=== PATIENT | male | born 1955 | race Caucasian/White ===

== ENCOUNTER 2018-11-14 04:06 | Inpatient (IN) ==
[2018-11-14] MEDS ORDERED: METHYLPREDNISOLONE SOD SUCC/PF 125 MG/2 ML VIAL IV ONE (04:17)
[2018-11-14] MEDS ORDERED: ALBUTEROL SULFATE 2.5 MG/0.5 ML VIAL.NEB IH ONE (04:17)
--- NOTE | 2018-11-14 04:24 | ERNOTE ---
Dyspnea - Date Date of Service: 11/14/18 - General Presenting Symptoms: shortness of breath Time Seen by Provider: 11/14/18 04:11 Source: patient - Immun/Allergies/Home Medications Immunizations: IMMUNIZATION HX Immunizations Up to Date Yes History of Influenza Vaccine No Hx Pneumococcal Vaccination No Allergies/Adverse Reactions: Allergies Iodinated Contrast- Oral and IV Dye [Iodinated Contrast Media - IV Dye] Allergy (Severe, Verified 11/14/18 04:19) Swelling of Face Sulfa (Sulfonamide Antibiotics) Allergy (Verified 11/14/18 04:19) iv dye Allergy (Severe, Uncoded 11/14/18 04:19) Swelling of Face Home Medications: HOME MEDICATIONS Acetaminophen [Tylenol] 650 mg PO QID PRN #1 tablet 09/03/14 [Last Taken Unknown] Carvedilol [Coreg] 3.125 mg PO BID #60 tablet 09/03/14 [Last Taken Unknown] Enalapril Maleate [Vasotec] 10 mg PO DAILY #30 tablet 09/03/14 [Last Taken Unknown] Furosemide [Lasix] 40 mg PO DAILY #30 tablet 09/03/14 [Last Taken Unknown] Albuterol Sulfate [Albuterol Sulfate 2.5 MG/0.5ML] 1 vial INHALATION Q4H #30 vial 09/24/18 [Last Taken Unknown] - History of Present Illness Narrative: This is a 62-year-old gentleman comes to the ER around 4:00 in the morning. He reports having profound dyspnea. Patient has a history of COPD. The patient reports he has been having increasing dyspnea for the last couple of days. Increased sputum production. Yellow to hilliard-colored mucus. No chest pain but a bit of tightness because of his breathing. He says it got really bad this morning. No swelling in his legs. No fever. He complains of a little bit of abdominal tightness but again relates that to the deep breathing. No vomiting or diarrhea. No urinary symptoms. No other complaints Review of Systems - Review of Systems Constitutional: Present: no symptoms reported EYE: Present: no symptoms reported ENT: Present: no symptoms reported Respiratory: Present: See HPI Cardiology: Present: no symptoms reported Gastrointestinal/Abdominal: Present: no symptoms reported Genitourinary: Present: no symptoms reported Musculoskeletal: Present: no symptoms reported Skin: Present: no symptoms reported Neurological: Present: no symptoms reported Endocrine: Present: no symptoms reported Hematologic/Lymphatic: Present: no symptoms reported Psych: Present: no symptoms reported All Other Systems: All systems neg except as marked Medical History (Updated 11/14/18 @ 04:17 by Lilly Ruiz RN) CHF (congestive heart failure) COPD (chronic obstructive pulmonary disease) HTN (hypertension) Pneumonia Social History: (Last Updated 11/14/18 @ 04:19 by Lilly Ruiz RN) Tobacco: Smoking Status: Former smoker Alcohol: alcohol intake: current Alcohol type: beer Physical Exam - Physical Exam General Appearance: Present: wd/wn, alert, anxious, other - Moderate to severe respiratory distress. Profoundly diaphoretic Head Exam: Present: normal inspection, no evidence of injury Eye Exam: Normal inspection: bilateral, PERRL: bilateral, EOMI: bilateral Ears, Nose, Throat: Present: normal ENT inspection Neck: Present: normal inspection Respiratory: Present: other - Virtually no air entry throughout. Moderate to severe respiratory distress. No breath sounds. Cardiovascular/Chest: Present: other - Very tachycardic around 150. Gastrointestinal/Abdominal: Present: normal bowel sounds, nontender, nondistended, soft Back Exam: Present: normal inspection, no CVA tenderness, no vertebral tenderness Extremity Exam: Present: normal inspection, non-tender, normal range of motion, no edema Neurological Exam: Present: alert, oriented, normal mood/affect, no motor/sensory deficits, other - Appears appropriately anxious Skin Exam: Present: normal color, warm/dry Lymphatic Exam: Present: no adenopathy Progress - Results and Orders Patient's Lab Results:: I have reviewed the patient's lab results. - Vital Signs Patient's Vital Signs:: I have reviewed the patient's vital signs. - EKG EKG #1 EKG read: Interp. by me EKG Comments: Difficult to truly assess whether this is sinus or not. The ventricular rate is 149. It does look like there are P waves present. Nonspecific T wave changes. Due to the rate and morphology difficult to make of the other assessments other than no ST elevation. Q waves present in V1 and V2. - X-Ray X-Ray #1 Interpretation: Interp. by me X-ray Comments: Chest x-ray shows hyperexpansion stigmata COPD? Right middle lobe infiltrate Plan - Plan Plan: Patient was placed on BiPAP initially. He had improvement for about 15 minutes but then got worse for 15 minutes and much better. Initial gas showed a pH of 7.2 with PCO2 in the 40s and PaO2 of 105 that was on 40% FiO2. He was kept on BiPAP for about an hour and heart rate is now down in the 90s he is breathing much more easily. He would like to try a trial off of the BiPAP. Initially when taken off of BiPAP his saturations went down to 85%. Placed on 3 L nasal cannula. I am not convinced that he has a pneumonia I think this is more likely COPD. I do not believe that he has congestive heart failure either. I am not going to aggressively diurese him. He is gotten steroids and antibiotics and breathing medicines. I will write for those over the next 24 hours. I spoke with Dr. Rousseau who is graciously agreed to admit the patient Departure Clinical Impression: COPD exacerbation - Departure Disposition: Still a patient Condition: Stable
[2018-11-14 04:44] LABS: Hematocrit 53.1 % (42.0-52.0); Hemoglobin 17.1 gm/dL (13.5-18.0); Mean Cell Volume 93.8 fl (78-100); Mean Corpuscular Hemoglobin 30.2 pg (27-31); Mean Corpuscular Hgb Conc 32.2 g/dl (32-36); Mean Platelet Volume 10.5 fl (8-11.3); Neutrophil # 7.9 K/mm3 (1.3-6.0); Neutrophil % 59.4 % (42-75.0); Platelet Count 220 K/mm3 (150-450); Red Blood Count 5.66 M/mm3 (4.7-6.0); Red Cell Distribution Width 13.7 % (11.5-14.0); White Blood Count 13.3 K/mm3 (4.0-10.5)
[2018-11-14] MEDS ORDERED: LEVOFLOXACIN IN DEXTROSE 5 % 750 MG/150 ML BAG IV ONE ×2 (04:46→06:04)
[2018-11-14] MEDS ORDERED: MORPHINE SULFATE 4 MG/ML SYRG IV ONE (04:47)
[2018-11-14 05:04] LABS: Anion Gap 16.5 mmol/L (6.8-13.8); BUN/Creatinine Ratio 12.6 (9.0-21.6); Calcium * 8.6 mg/dL (7.9-10.9); Carbon Dioxide 24.6 mmol/L (24-32.6); Estimated Creat Clear 43.5; Potassium 4.1 mmol/L (3.4-4.6); Troponin I 0.108 ng/mL (0.00-0.10)
[2018-11-14] MEDS ORDERED: ALBUTEROL SULFATE 2.5 MG/0.5 ML VIAL.NEB IH SCH (06:15)
[2018-11-14] MEDS: METHYLPREDNISOLONE SOD SUCC/PF 125 MG/2 ML VIAL IV SCH ×3 (06:53→19:13)
[2018-11-14] MEDS ORDERED: NORMAL SALINE 1,000 ML IV PRN (08:44)
--- NOTE | 2018-11-14 08:46 | HP ---
Chief Complaint - Chief Complaint Date of Service: 11/14/18 Time of Service: 08:28 Chief Complaint: dyspnea History of Present Illness: Patient with past medical history of COPD and hypertension presented to the ER after having a couple of days of shortness of breath. This has happened to him before and he is requiring the mask, but never required ventilation. He admits to not taking medicines at home, and does not see a doctor regularly. The BiPAP has helped. It was removed for a short time, but he had increased work of breathing. Denies other symptoms. Medical History (Updated 11/14/18 @ 06:07 by Venancio Argueta MD) CHF (congestive heart failure) COPD (chronic obstructive pulmonary disease) HTN (hypertension) Pneumonia Surgical History: Surgical History (Updated 11/14/18 @ 06:59 by Shaye Kirkland RN) Abdominal aneurysm removal of Family History: Family History (Updated 11/14/18 @ 07:00 by Shaye Kirkland RN) Other Unknown family medical history Social History: (Last Reviewed 11/14/18 @ 07:00 by Shaye Kirkland RN) Tobacco: Smoking Status: Former smoker Alcohol: alcohol intake: current Alcohol type: beer Review Of Systems (GEN) - Review of Systems Generalized/Overall Review: Absent: Weakness, Fever Respiratory: Present: Shortness of Breath. Absent: Cough Cardiac: Absent: Chest Pain, Edema Abdominal: Absent: Nausea Genitourinary: Present: No Symptoms Reported Musculoskeletal: Present: No Symptoms Reported Neurological: Present: No Symptoms Reported Skin: Present: No Symptoms Reported Immunizations: IMMUNIZATION HX Immunizations Up to Date Yes History of Influenza Vaccine No Hx Pneumococcal Vaccination No Allergies/Adverse Reactions: Allergies Allergy/AdvReac Type Severity Reaction Status Date / Time Iodinated Contrast- Oral and Allergy Severe Swelling Verified 11/14/18 07:00 IV Dye of Face [Iodinated Contrast Media - IV Dye] Sulfa (Sulfonamide Allergy Verified 11/14/18 07:00 Antibiotics) iv dye Allergy Severe Swelling Uncoded 11/14/18 07:00 of Face Home Medications: HOME MEDICATIONS Acetaminophen [Tylenol] 650 mg PO QID PRN #1 tablet 09/03/14 [Last Taken Unknown] Carvedilol [Coreg] 3.125 mg PO BID #60 tablet 09/03/14 [Last Taken Unknown] Enalapril Maleate [Vasotec] 10 mg PO DAILY #30 tablet 09/03/14 [Last Taken Unk nown] Furosemide [Lasix] 40 mg PO DAILY #30 tablet 09/03/14 [Last Taken Unknown] Albuterol Sulfate [Albuterol Sulfate 2.5 MG/0.5ML] 1 vial INHALATION Q4H #30 vial 09/24/18 [Last Taken Unknown] Exam - Exam Vital Signs: Vital Signs - Last Taken Temp 36.0 C 11/14/18 06:20 Pulse 104 H 11/14/18 06:37 Resp 30 H 11/14/18 06:37 BP 157/81 H 11/14/18 06:20 Pulse Ox 100 11/14/18 06:37 Constitutional: Present: Alert, Cooperative, No distress Respiratory: Present: lungs clear, other - wearing BiPAP, 12/5. Absent: rhonchi Cardiovascular/Chest: Present: regular rate, rhythm, systolic murmur Abdomen: Present: Normal bowel sounds, soft, nontender Extremity: Absent: lower extremity edema Neurologic: Present: normal mood/affect Eye contact: Present: cooperative, good eye contact Diagnostic Studies: Abnormal Lab Results 11/14/18 11/14/18 11/14/18 Range/Units 04:30 04:44 04:44 WBC 13.3 H (4.0-10.5) K/mm3 Hct 53.1 H (42.0-52.0) % Immature Gran % (Auto) 0.60 H (0.001-0.429) % Immature Gran # (Auto) 0.08 H (0.000-0.0310) K/mm3 Neutrophils # 7.9 H (1.3-6.0) K/mm3 Lymphocytes # 4.20 H (1.5-3.5) k/mm3 HCO3 17.4 L (21.0-28.0) mmol/L Total CO2 18.7 L (19.0-24.0) mmol/L Base Excess -9.1 L (-2.0-3.0) mmol/L ABG pH 7.26 L (7.35-7.45) Sodium 145 H (132-142) mmol/L Plasma Sodium 147 H (130-142) mmol/L Chloride 108 H (97-106) mmol/L Anion Gap 16.5 H (6.8-13.8) mmol/L Creatinine 1.74 H (0.4-1.4) mg/dL Est GFR (Non-Af Amer) 42 L (60-130) mL/min Random Glucose 215 H (70-110) mg/dL Lactic Acid, Venous (0.4-2.0) mmol/L Troponin I 0.108 H (0.00-0.10) ng/mL B-Natriuretic Peptide 9674 H (5-175) pg/mL 11/14/18 Range/Units 04:48 WBC (4.0-10.5) K/mm3 Hct (42.0-52.0) % Immature Gran % (Auto) (0.001-0.429) % Immature Gran # (Auto) (0.000-0.0310) K/mm3 Neutrophils # (1.3-6.0) K/mm3 Lymphocytes # (1.5-3.5) k/mm3 HCO3 (21.0-28.0) mmol/L Total CO2 (19.0-24.0) mmol/L Base Excess (-2.0-3.0) mmol/L ABG pH (7.35-7.45) Sodium (132-142) mmol/L Plasma Sodium (130-142) mmol/L Chloride (97-106) mmol/L Anion Gap (6.8-13.8) mmol/L Creatinine (0.4-1.4) mg/dL Est GFR (Non-Af Amer) (60-130) mL/min Random Glucose (70-110) mg/dL Lactic Acid, Venous 3.6 H* (0.4-2.0) mmol/L Troponin I (0.00-0.10) ng/mL B-Natriuretic Peptide (5-175) pg/mL Laboratory Results WBC 13.3 K/mm3 (4.0-10.5) H 11/14/18 04:44 RBC 5.66 M/mm3 (4.7-6.0) 11/14/18 04:44 Hgb 17.1 gm/dL (13.5-18.0) 11/14/18 04:44 Hct 53.1 % (42.0-52.0) H 11/14/18 04:44 MCV 93.8 fl (78-100) 11/14/18 04:44 MCH 30.2 pg (27-31) 11/14/18 04:44 MCHC 32.2 g/dl (32-36) 11/14/18 04:44 RDW 13.7 % (11.5-14.0) 11/14/18 04:44 Plt Count 220 K/mm3 (150-450) 11/14/18 04:44 MPV 10.5 fl (8-11.3) 11/14/18 04:44 Immature Gran % (Auto) 0.60 % (0.001-0.429) H 11/14/18 04:44 Immature Gran # (Auto) 0.08 K/mm3 (0.000-0.0310) H 11/14/18 04:44 59.4 % (42-75.0) 11/14/18 04:44 31.6 % (20-51) 11/14/18 04:44 5.2 % (0.0-9) 11/14/18 04:44 2.3 % (0.0-3.0) 11/14/18 04:44 0.9 % (0.0-1.0) 11/14/18 04:44 Nucleated RBC % 0.0 k/mm3 (0-1) 11/14/18 04:44 7.9 K/mm3 (1.3-6.0) H 11/14/18 04:44 4.20 k/mm3 (1.5-3.5) H 11/14/18 04:44 0.7 k/mm3 (0.0-1.0) 11/14/18 04:44 0.3 k/mm3 (0.0-0.7) 11/14/18 04:44 Absolute Basophils 0.1 k/mm3 (0.0-0.1) 11/14/18 04:44 pCO2 40.0 mmHg (35.0-48.0) 11/14/18 04:30 pO2 102.8 mmHg (83.0-108.0) 11/14/18 04:30 HCO3 17.4 mmol/L (21.0-28.0) L 11/14/18 04:30 Total CO2 18.7 mmol/L (19.0-24.0) L 11/14/18 04:30 Base Excess -9.1 mmol/L (-2.0-3.0) L 11/14/18 04:30 ABG pH 7.26 (7.35-7.45) L 11/14/18 04:30 ABG O2 Sat (Measured) 96.9 % (94.0-98.0) 11/14/18 04:30 Sodium 145 mmol/L (132-142) H 11/14/18 04:44 147 mmol/L (130-142) H 11/14/18 04:44 Potassium 4.1 mmol/L (3.4-4.6) 11/14/18 04:44 Chloride 108 mmol/L (97-106) H 11/14/18 04:44 Carbon Dioxide 24.6 mmol/L (24-32.6) 11/14/18 04:44 16.5 mmol/L (6.8-13.8) H 11/14/18 04:44 BUN 22 mg/dL (6-23) 11/14/18 04:44 1.74 mg/dL (0.4-1.4) H 11/14/18 04:44 Est GFR (Non-Af Amer) 42 mL/min (60-130) L 11/14/18 04:44 12.6 (9.0-21.6) 11/14/18 04:44 215 mg/dL (70-110) H 11/14/18 04:44 3.6 mmol/L (0.4-2.0) H* 11/14/18 04:48 Calcium 8.6 mg/dL (7.9-10.9) 11/14/18 04:44 0.108 ng/mL (0.00-0.10) H 11/14/18 04:44 B-Natriuretic Peptide 9674 pg/mL (5-175) H 11/14/18 04:44 Assessment/Plan - Assessment/Plan (1) COPD exacerbation Assessment: He is currently wearing BiPAP at 12, which greatly helps with his breathing. He was given 125 mg Solu-Medrol in the ED and started on Levaquin. We will continue every 6 IV steroids, breathing treatments, and have him on the BiPAP for at least a few hours. He admits to not taking medicines at home which could have precipitated this. Lactate was elevated, but has resolved. Troponin was 0.149, up from 0.108. Recheck in 3 hours. Chest x-ray reports possible volume overload, but he does not have crackles or lower extremity edema on physical exam. Problem: Acute (2) Hypertension Assessment: He reports being on hypertensive medication in the past, but is not sure which one. His blood pressures are highly elevated this morning, which may be secondary to his breathing. We will resume the Coreg and enalapril that were in his chart previously. Problem: Chronic (3) SAUNDRA (acute kidney injury) Assessment: Creatinine of 1.74. We will gently hydrate while he is on the BiPAP. Problem: Acute
[2018-11-14] MEDS: CARVEDILOL 3.125 MG TABLET PO SCH ×4 (09:00→20:54)
[2018-11-14] MEDS: ENALAPRIL MALEATE 5 MG TABLET PO SCH ×2 (09:00→12:21)
[2018-11-14] MEDS: ALBUTEROL SULFATE 2.5 MG/0.5 ML VIAL.NEB IH SCH ×5 (10:04→23:08)
[2018-11-14] MEDS ORDERED: hydrALAZINE HCL 20 MG/ML VIAL IV ONE (16:21)
[2018-11-14] MEDS: hydrALAZINE HCL 20 MG/ML VIAL IV PRN (21:49)
[2018-11-14] MEDS ORDERED: ALBUTEROL SULFATE 2.5 MG/0.5 ML VIAL.NEB IH PRN (22:15)
[2018-11-15] MEDS: METHYLPREDNISOLONE SOD SUCC/PF 125 MG/2 ML VIAL IV SCH ×3 (00:37→15:17)
[2018-11-15] MEDS: ALBUTEROL SULFATE 2.5 MG/0.5 ML VIAL.NEB IH SCH ×4 (02:07→14:07)
[2018-11-15 06:27] LABS: Anion Gap 13.3 mmol/L (6.8-13.8); BUN/Creatinine Ratio 23.7 (9.0-21.6); Ca. Corrected For Albumin 8.8 mg/dL (8.4-10.2); Calcium * 8.3 mg/dL (7.9-10.9); Carbon Dioxide 24.1 mmol/L (24-32.6); Potassium 4.4 mmol/L (3.4-4.6); Total Protein 5.9 gm/dL (6.2-8.2)
[2018-11-15] MEDS: hydrALAZINE HCL 20 MG/ML VIAL IV PRN (06:40)
[2018-11-15] MEDS: LEVOFLOXACIN 750 MG TABLET PO SCH ×2 (08:39→10:05)
[2018-11-15] MEDS: DOXYCYCLINE HYCLATE 100 MG TABLET PO SCH ×2 (08:39→09:09)
[2018-11-15] MEDS: ENALAPRIL MALEATE 5 MG TABLET PO SCH (08:39)
--- NOTE | 2018-11-15 13:21 | DS ---
(1) COPD exacerbation Problem: Resolved (2) Hypertension Problem: Chronic (3) SAUNDRA (acute kidney injury) Problem: Resolved Date of Discharge:: 11/15/18 Description of Stay: Patient with past medical history of COPD and hypertension presented to the ER after having a couple of days of shortness of breath. This has happened to him before and he is requiring the mask, but never required intubation. He admits t o not taking medicines at home, and does not see a doctor regularly. He required the use of BiPAP for about 7 hours. He was weaned to room air the afternoon of admission. He was given 125 mg IV Solu-Medrol in the ED, and continued with 60 mg Solu-Medrol every 6 hours for the remainder of his stay. He was also given doxycycline and Levaquin. His blood pressure was highly elevated, but improved as his breathing improved, and with lisinopril. Will send with enalapril, as this was on a previous medication list. This may need to be adjusted at his follow-up. Procedures Performed: none Results and Findings: Pending Mircobiology Results 11/14/18 05:05 Blood Blood Culture - Preliminary NO GROWTH 24 HOURS 11/14/18 05:05 Blood Blood Culture - Preliminary NO GROWTH 24 HOURS Lab Pending Results 11/14/18 04:30: pCO2 40.0, pO2 102.8, HCO3 17.4 L, Total CO2 18.7 L, Base Excess -9.1 L, ABG pH 7.26 L, ABG O2 Sat (Measured) 96.9 11/14/18 04:44: WBC 13.3 H, RBC 5.66, Hgb 17.1, Hct 53.1 H, MCV 93.8, MCH 30.2, MCHC 32.2, RDW 13.7, Plt Count 220, MPV 10.5, Immature Gran % (Auto) 0.60 H, Immature Gran # (Auto) 0.08 H, Neutrophils % 59.4, Lymphocytes % 31.6, Monocytes % 5.2, Eosinophils % 2.3, Basophils % 0.9, Nucleated RBC % 0.0, Neutrophils # 7.9 H, Lymphocytes # 4.20 H, Monocytes # 0.7, Eosinophils # 0.3, Absolute Basophils 0.1 11/14/18 04:44: Sodium 145 H, Plasma Sodium 147 H, Potassium 4.1, Chloride 108 H, Carbon Dioxide 24.6, Anion Gap 16.5 H, BUN 22, Creatinine 1.74 H, Est GFR (Non-Af Amer) 42 L, BUN/Creatinine Ratio 12.6, Random Glucose 215 H, Calcium 8.6, Troponin I 0.108 H, B-Natriuretic Peptide 9674 H 11/14/18 04:48: Lactic Acid, Venous 3.6 H* 11/14/18 08:10: Troponin I 0.149 H* 11/14/18 08:10: Lactic Acid, Venous 1.6 11/14/18 09:33: pCO2 32.6 L, pO2 101.1, HCO3 18.3 L, Total CO2 19.3, Base Excess -5.9 L, ABG pH 7.37, ABG O2 Sat (Measured) 97.5 11/14/18 10:44: Troponin I 0.189 H* 11/14/18 13:45: Troponin I 0.183 H* 11/14/18 17:20: Troponin I 0.181 H* 11/15/18 06:10: Sodium 140, Plasma Sodium 141, Potassium 4.4, Chloride 107 H, Carbon Dioxide 24.1, Anion Gap 13.3, BUN 31 H, Creatinine 1.31 D, Est GFR (Non- Af Amer) 59 L D, BUN/Creatinine Ratio 23.7 H, Random Glucose 146 H D, Calcium 8.3, Calcium Adj for Albumin 8.8, Total Bilirubin 1.0, AST 25, ALT 40, Alkaline Phosphatase 75, Total Protein 5.9 L, Albumin 3.0 L Discharge Location: Home Disposition: Home self-care Condition: Stable Discharge Activity: Activity as tolerated Discharge Diet: General/regular food Referrals: Tyrell Caban MD [Primary Care Provider] - One Week Problem Oriented Discharge Instructions to Patient/Family: Form - Excuse from Work, School, or Physical Activity Prescriptions (Any new or edited meds): Albuterol Sulfate [Albuterol Sulfate 2.5 MG/0.5ML] 2.5 mg IH Q4H PRN #1 vial.neb PRN Reason: Shortness Of Breath Levofloxacin [Levaquin] 750 mg PO DAILY@1100 #3 tablet Albuterol Sulfate [Proair Hfa] 1 - 2 puff INHALATION Q4H PRN #1 inhaler PRN Reason: Shortness Of Breath Enalapril Maleate [Vasotec] 10 mg PO DAILY #30 tablet Doxycycline Hyclate [Vibratab] 100 mg PO BID #7 tablet Complete Home Medications List: Complete Home Medication List: Albuterol Sulfate [Albuterol Sulfate 2.5 MG/0.5ML] 2.5 mg IH Q4H PRN #1 vial.neb 11/15/18 Albuterol Sulfate [Proair Hfa] 1 - 2 puff INHALATION Q4H PRN #1 inhaler 11/15/18 Doxycycline Hyclate [Vibratab] 100 mg PO BID #7 tablet 11/15/18 Enalapril Maleate [Vasotec] 10 mg PO DAILY #30 tablet 11/15/18 Levofloxacin [Levaquin] 750 mg PO DAILY@1100 #3 tablet 11/15/18
[2018-11-15 14:29] VITALS: BP 153/80
== END 2018-11-15 14:36 | disposition home or self-care (01) | DRG 191 ==
LOC: ER 04:06 → MS 06:01 → SCU 08:03
PROVIDERS: ADMIT Family Medicine; ATTEND Allergy & Immunology
DX: J44.1 Chronic obstructive pulmonary disease with (acute) exacerbation; I10 Essential (primary) hypertension; N17.9 Acute kidney failure, unspecified; Z87.891 Personal history of nicotine dependence; R01.1 Cardiac murmur, unspecified; I11.0 Hypertensive heart disease with heart failure
CPT/HCPCS: 36415; 36600; 71010; 71045; 80048; 80053; 82803; 83519; 83605; 83880; 84484; 85025; 87040; 93005; 94640; 94664; 94762; 96365; 96366; 96375; 99285

== ENCOUNTER 2019-01-15 03:56 | Observation (INO) ==
[2019-01-15] MEDS ORDERED: ALBUTEROL SULFATE/IPRATROPIUM 3 ML NEBU IH ONE (04:11)
[2019-01-15] MEDS ORDERED: FUROSEMIDE 10 MG/ML VIAL IV ONE ×2 (04:11→11:27)
--- NOTE | 2019-01-15 04:17 | ERNOTE ---
Dyspnea - Date Date of Service: 01/15/19 - General Presenting Symptoms: shortness of breath, difficulty of breathing Time Seen by Provider: 01/15/19 04:04 Source: patient Exam Limitations: no limitations - Immun/Allergies/Home Medications Immunizations: IMMUNIZATION HX Immunizations Up to Date Yes History of Influenza Vaccine No Hx Pneumococcal Vaccination No Allergies/Adverse Reactions: Allergies Iodinated Contrast Media [Iodinated Contrast Media - IV Dye] Allergy (Severe, Verified 01/15/19 04:06) Swelling of Face Sulfa (Sulfonamide Antibiotics) Allergy (Verified 01/15/19 04:06) iv dye Allergy (Severe, Uncoded 01/15/19 04:06) Swelling of Face Home Medications: HOME MEDICATIONS albuterol sulfate 2.5 mg IH Q4H PRN #100 ml 11/30/18 [Last Taken Unknown] albuterol sulfate 90 mcg/actuation aerosol inhaler 1 - 2 puff INHALATION Q4H PRN #1 inhaler 11/30/18 [Last Taken Unknown] enalapril maleate 10 mg tablet 10 mg PO DAILY #30 tab 11/30/18 [Last Taken Unknown] - History of Present Illness Narrative: 63-year-old male comes to the emergency room complaining of increasing shortness of breath that began early last night woke him up from sleep patient has a history of CHF and COPD denies any chest pain patient states he bargain friend's oxygen to help him tonight seem to help a little bit denies any weight gain Severity: moderate Treatment [employer]: oxygen Initiating event: Reports: none Frequency of episodes: Reports: occassional episodes Modifying Factors - (Improves): Reports: oxygen Modifying Factors (Worsens): Reports: nothing Associated Symptoms-Dyspnea: Reports: denies symptoms Review of Systems - Review of Systems Constitutional: Present: no symptoms reported. Absent: weight loss EYE: Present: no symptoms reported ENT: Present: no symptoms reported Respiratory: Present: shortness of breath, cough Cardiology: Absent: chest pain, syncope Gastrointestinal/Abdominal: Present: no symptoms reported Genitourinary: Present: no symptoms reported Musculoskeletal: Present: no symptoms reported Skin: Present: no symptoms reported Neurological: Present: no symptoms reported Endocrine: Present: no symptoms reported Hematologic/Lymphatic: Present: no symptoms reported All Other Systems: All systems neg except as marked Medical History (Last Reviewed 01/15/19 @ 04:15 by Rich Stapleton MD) CHF (congestive heart failure) COPD (chronic obstructive pulmonary disease) HTN (hypertension) Pneumonia Surgical History: Surgical History (Last Reviewed 01/15/19 @ 04:15 by Rich Stapleton MD) Abdominal aneurysm removal of Family History: Family History (Last Reviewed 01/15/19 @ 04:06 by Lilly Ruiz RN) Father Cancer Mother CVA (cerebral vascular accident) Other Unknown family medical history Social History: (Last Updated 11/30/18 @ 09:57 by Tyrell Caban MD) Social History: Marital status: household members: family current occupational status: employed Highest education level completed: high school graduate Service: No Tobacco: Smoking Status: Former smoker Alcohol: alcohol intake: current Alcohol type: beer alcohol intake frequency: a few times a week details: couple beers when he does Substance Use: substance use type: does not use Physical Exam - Physical Exam General Appearance: Present: wd/wn, moderate distress Head Exam: Present: normal inspection Eye Exam: Normal inspection: bilateral Ears, Nose, Throat: Present: normal ENT inspection Neck: Present: normal inspection Respiratory: Present: chest nontender, crackles, rales, wheezing. Absent: no respiratory distress, normal breath sounds Cardiovascular/Chest: Present: tachycardia Peripheral Pulses: N=norm/S=strong/W=weak/B=bound/A=absent: Carotid (R): Normal, Carotid (L): Normal Gastrointestinal/Abdominal: Present: normal bowel sounds Back Exam: Present: normal inspection Extremity Exam: Present: normal inspection, normal except -, non-tender, no edema. Absent: calf tenderness Neurological Exam: Present: alert, oriented, normal mood/affect, no motor/sensor y deficits Skin Exam: Present: diaphoresis. Absent: normal color - Pale and well Lymphatic Exam: Present: no adenopathy Progress - Results and Orders Patient's Lab Results:: I have reviewed the patient's lab results. Results and Orders: Lab reports WBC 8.8 hemoglobin 14.6 hematocrit 44.6 blood gas pH 7.41 CO2 3102 59 bicarb 19.5 O2 sat 91.3 troponin 0 0.22 BUN 25 creatinine 1.44 BMP 8981 - Vital Signs Patient's Vital Signs:: I have reviewed the patient's vital signs. Vital Signs: Vital Signs 01/15/19 03:58 Temperature 36.0 C Pulse Rate 121 H Respiratory Rate 26 H Blood Pressure 182/96 H O2 Sat by Pulse Oximetry 93 Blood pressure and heart rate are elevated BP is 1 8296 - EKG EKG #1 EKG: NSR EKG read: Interp. by me EKG Comments: Sinus tachycardia with occasional PVCs possible right atrial enlargement left atrial enlargement moderate intraventricular conduction delay heart rate is 114 no significant changes from November 14, 2018 - X-Ray X-Ray #1 X-Ray: chest Interpretation: Interp. by me X-ray Comments: Large heart pulmonary vascular congestion consistent with CHF - Progress/Reassessment Chief Complaint: Dyspnea Plan - Plan Plan: he will be admitted for observation and telemetry. Patient to be admitted to Dr. Santillan service was accepted patient Departure Clinical Impression: Acute CHF, Pulmonary edema, Hypoxia - Departure Disposition: Short Term Hospital Inpatient Condition: Stable Referrals: Tyrell Caban MD [Primary Care Provider] -
[2019-01-15 04:26] LABS: Hematocrit 44.6 % (42.0-52.0); Hemoglobin 14.6 gm/dL (13.5-18.0); Mean Cell Volume 92.1 fl (78-100); Mean Corpuscular Hemoglobin 30.2 pg (27-31); Mean Corpuscular Hgb Conc 32.7 g/dl (32-36); Mean Platelet Volume 9.5 fl (8-11.3); Neutrophil # 7.6 K/mm3 (1.3-6.0); Neutrophil % 86.5 % (42-75.0); Platelet Count 220 K/mm3 (150-450); Red Blood Count 4.84 M/mm3 (4.7-6.0); Red Cell Distribution Width 13.8 % (11.5-14.0); White Blood Count 8.8 K/mm3 (4.0-10.5)
[2019-01-15 04:36] LABS: Prothrombin Time (Patient) 10.7 Seconds (9.1-10.7)
[2019-01-15 04:44] LABS: INR 1.08 INR (0.92-1.08)
[2019-01-15 04:45] LABS: Partial Thrombolplastin Time 27.1 Seconds (24-32)
[2019-01-15 04:46] LABS: Albumin * 3.7 gm/dl (3.4-5.0); Anion Gap 7.8 mmol/L (6.8-13.8); BUN/Creatinine Ratio 17.4 (9.0-21.6); Bilirubin, Total 0.7 mg/dL (0.0-1.1); Ca. Corrected For Albumin 7.9 mg/dL (8.4-10.2); Carbon Dioxide 24.8 mmol/L (24-32.6); Potassium 4.6 mmol/L (3.4-4.6)
[2019-01-15 04:47] LABS: Troponin I 0.022 ng/mL (0.00-0.10)
[2019-01-15] MEDS ORDERED: NON-FORMULARY 1 DOSE DOSE (Albuterol Sulfate 2.5 MG) IH PRN (11:28)
[2019-01-15] MEDS ORDERED: ALBUTEROL SULFATE 2.5 MG/0.5 ML VIAL.NEB IH PRN (11:28)
[2019-01-15] MEDS ORDERED: ENALAPRIL MALEATE 5 MG TABLET PO SCH (11:30)
[2019-01-15] MEDS ORDERED: amLODIPine BESYLATE 10 MG TABLET PO SCH (11:45)
--- NOTE | 2019-01-15 15:40 | HPDIS ---
Chief Complaint - Chief Complaint Date of Service: 01/15/19 Time of Service: 10:35 Chief Complaint: Dyspnea History of Present Illness: Ricky Gonzales is a 63-year-old male admitted through ER with shortness of breath. He has a history of cardiomyopathy and poor ejection fraction. He came to the ER in respiratory distress. He was given IV furosemide in the emergency room and he diuresed successfully. I saw him again at 1035 this m orning and he was much more comfortable and breathing with the room air only. The exam did not reflect any findings for congestive heart failure as the lungs were clear, neck veins were not distended, and the HJR negative. Nonetheless I gave him a second dose of furosemide 40 mg IV at noon. He has diuresed a considerable amount of fluid again. He is feeling much better and feels that he can go home and continue his home therapy. 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 He is a patient of Dr. Baldwin and will be referred back to him to be seen within 2 weeks. Admitting lab work showed CBC to be normal. Arterial blood gases showed PCO2 slightly low at 31 and PO2 slightly low at 59 and bicarb low at 19.5. pH was 7.41. O2 sats was 91.3%. Creatinine is 1.44 with an EGFR of 52. The BNP was 8981. Medical History (Last Reviewed 01/15/19 @ 05:45 by Susanne Rodriguez RN) CHF (congestive heart failure) COPD (chronic obstructive pulmonary disease) HTN (hypertension) Pneumonia Surgical History: Surgical History (Last Reviewed 01/15/19 @ 05:45 by Susanne Rodriguez RN) Abdominal aneurysm removal of Family History: Family History (Last Reviewed 01/15/19 @ 05:46 by Susanne Rodriguez RN) Father Cancer Mother CVA (cerebral vascular accident) Other Unknown family medical history Social History: (Last Reviewed 01/15/19 @ 05:46 by Susanne Rodriguez RN) Social History: Marital status: household members: family current occupational status: employed Highest education level completed: high school graduate Service: No Tobacco: Smoking Status: Former smoker Alcohol: alcohol intake: current Alcohol type: beer alcohol intake frequency: a few times a week details: couple beers when he does Substance Use: substance use type: does not use Review Of Systems (GEN) - Review of Systems EENTM: Present: No Symptoms Reported Respiratory: Present: Shortness of Breath, Wheezing Cardiac: Present: No Symptoms Reported Abdominal: Present: No Symptoms Reported Genitourinary: Present: No Symptoms Reported Musculoskeletal: Present: No Symptoms Reported Neurological: Present: No Symptoms Reported Skin: Present: No Symptoms Reported Endocrine: Present: No Symptoms Reported Immunizations: IMMUNIZATION HX Immunizations Up to Date Yes History of Influenza Vaccine No Hx Pneumococcal Vaccination No Allergies/Adverse Reactions: Allergies Allergy/AdvReac Type Severity Reaction Status Date / Time Iodinated Contrast Media Allergy Severe Swelling Verified 01/15/19 04:06 [Iodinated Contrast Media - of Face IV Dye] Sulfa (Sulfonamide Allergy Verified 01/15/19 04:06 Antibiotics) iv dye Allergy Severe Swelling Uncoded 01/15/19 04:06 of Face Home Medications: HOME MEDICATIONS albuterol sulfate 2.5 mg IH Q4H PRN #100 ml 11/30/18 [Last Taken 01/15/19 04:00] albuterol sulfate 90 mcg/actuation aerosol inhaler 1 - 2 puff INHALATION Q4H PRN #1 inhaler 11/30/18 [Last Taken 01/15/19 01:00 [employer]] enalapril maleate 10 mg tablet 10 mg PO DAILY #30 tab 11/30/18 [Last Taken 01/14/19 06:00] Aspirin [Aspirin Enteric Coated] 81 mg PO DAILY 01/15/19 [Last Taken 01/14/19 06:00] Furosemide [Lasix] 40 mg PO DAILY #30 tablet 01/15/19 [Last Taken Unknown] amLODIPine BESYLATE [Norvasc] 10 mg PO DAILY #30 tab 01/15/19 [Last Taken Unknown] Exam - Exam Vital Signs: Vital Signs - Last Taken Temp 37.1 C 01/15/19 14:08 Pulse 88 01/15/19 14:08 Resp 16 01/15/19 14:08 BP 162/94 H 01/15/19 14:08 Pulse Ox 96 01/15/19 14:08 Constitutional: Present: Alert, Oriented x3, Cooperative, Well developed, Well nourished, No distress ENT Exam: Present: normal ENT inspection, hearing grossly normal, pharynx normal, TMs normal Eye Exam: bilateral eye: normal inspection, PERRL, EOMI Neck: Present: non-tender, full range of motion Back Exam: Present: normal inspection, no CVA tenderness, no vertebral tenderness Breasts: Present: Exam deferred Respiratory: Present: chest non-tender, lungs clear, normal breath sounds, no respiratory distress, no accessory muscle use Cardiovascular/Chest: Present: normal peripheral pulses, regular rate, rhythm, no chest tenderness, edema Peripheral Pulses: carotid (R): 2+, carotid (L): 2+, dorsalis-pedis (R): 2+, dorsalis-pedis (L): 2+, radial (R): 2+, radial (L): 2+ Abdomen: Present: Normal bowel sounds, soft, nontender, nondistended, no rebound tenderness, no hepatospenomegaly, no masses /Rectal: Present: Exam deferred, External genitalia normal Extremity: Present: normal range of motion, non-tender, normal inspection, no pedal edema, no calf tenderness, normal capillary refill Skin Exam: Present: normal color, warm/dry, no cyanosis Lymphatic: Present: no adenopathy Neurologic: Present: 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, no motor/sensory deficits, alert, normal mood/affect, oriented x 3 Appearance: Present: appropriate appearance, appropriate insight, neat Eye contact: Present: cooperative, good eye contact, normal speech Thoughts: Present: normal thought pattern, no apparent hallucination Diagnostic Studies: Abnormal Lab Results 01/15/19 01/15/19 01/15/19 Range/Units 04:10 04:20 04:20 Neutrophils % 86.5 H (42-75.0) % Lymphocytes % 8.2 L (20-51) % Neutrophils # 7.6 H (1.3-6.0) K/mm3 Lymphocytes # 0.72 L (1.5-3.5) k/mm3 pCO2 31.7 L (35.0-48.0) mmHg pO2 59.5 L (83.0-108.0) mmHg HCO3 19.5 L (21.0-28.0) mmol/L Base Excess -4.1 L (-2.0-3.0) mmol/L ABG O2 Sat (Measured) 91.3 L (94.0-98.0) % Sodium 131 L (132-142) mmol/L BUN 25 H (6-23) mg/dL Creatinine 1.44 H (0.4-1.4) mg/dL Est GFR (Non-Af Amer) 52 L (60-130) mL/min Random Glucose 168 H (70-110) mg/dL Calcium Adj for Albumin 7.9 L (8.4-10.2) mg/dL B-Natriuretic Peptide 8981 H (5-175) pg/mL Laboratory Results WBC 8.8 K/mm3 (4.0-10.5) 01/15/19 04:20 RBC 4.84 M/mm3 (4.7-6.0) 01/15/19 04:20 Hgb 14.6 gm/dL (13.5-18.0) 01/15/19 04:20 Hct 44.6 % (42.0-52.0) 01/15/19 04:20 MCV 92.1 fl (78-100) 01/15/19 04:20 MCH 30.2 pg (27-31) 01/15/19 04:20 MCHC 32.7 g/dl (32-36) 01/15/19 04:20 RDW 13.8 % (11.5-14.0) 01/15/19 04:20 Plt Count 220 K/mm3 (150-450) 01/15/19 04:20 MPV 9.5 fl (8-11.3) 01/15/19 04:20 Immature Gran % (Auto) 0.30 % (0.001-0.429) 01/15/19 04:20 Immature Gran # (Auto) 0.03 K/mm3 (0.000-0.0310) 01/15/19 04:20 Neutrophils % 86.5 % (42-75.0) H 01/15/19 04:20 Lymphocytes % 8.2 % (20-51) L 01/15/19 04:20 Monocytes % 4.6 % (0.0-9) 01/15/19 04:20 Eosinophils % 0.1 % (0.0-3.0) 01/15/19 04:20 Basophils % 0.3 % (0.0-1.0) 01/15/19 04:20 Nucleated RBC % 0.0 k/mm3 (0-1) 01/15/19 04:20 Neutrophils # 7.6 K/mm3 (1.3-6.0) H 01/15/19 04:20 Lymphocytes # 0.72 k/mm3 (1.5-3.5) L 01/15/19 04:20 Monocytes # 0.4 k/mm3 (0.0-1.0) 01/15/19 04:20 Eosinophils # 0.0 k/mm3 (0.0-0.7) 01/15/19 04:20 Absolute Basophils 0.0 k/mm3 (0.0-0.1) 01/15/19 04:20 PT 10.7 Seconds (9.1-10.7) 01/15/19 04:20 INR (Anticoag Therapy) 1.08 INR (0.92-1.08) 01/15/19 04:20 PTT ([place]) 27.1 Seconds (24-32) 01/15/19 04:20 pCO2 31.7 mmHg (35.0-48.0) L 01/15/19 04:10 pO2 59.5 mmHg (83.0-108.0) L 01/15/19 04:10 HCO3 19.5 mmol/L (21.0-28.0) L 01/15/19 04:10 Total CO2 20.4 mmol/L (19.0-24.0) 01/15/19 04:10 Base Excess -4.1 mmol/L (-2.0-3.0) L 01/15/19 04:10 ABG pH 7.41 (7.35-7.45) 01/15/19 04:10 ABG O2 Sat (Measured) 91.3 % (94.0-98.0) L 01/15/19 04:10 Sodium 131 mmol/L (132-142) L 01/15/19 04:20 Plasma Sodium 132 mmol/L (130-142) 01/15/19 04:20 Potassium 4.6 mmol/L (3.4-4.6) 01/15/19 04:20 Chloride 103 mmol/L (97-106) 01/15/19 04:20 Carbon Dioxide 24.8 mmol/L (24-32.6) 01/15/19 04:20 Anion Gap 7.8 mmol/L (6.8-13.8) 01/15/19 04:20 BUN 25 mg/dL (6-23) H 01/15/19 04:20 Creatinine 1.44 mg/dL (0.4-1.4) H 01/15/19 04:20 Est GFR (Non-Af Amer) 52 mL/min (60-130) L 01/15/19 04:20 BUN/Creatinine Ratio 17.4 (9.0-21.6) 01/15/19 04:20 Random Glucose 168 mg/dL (70-110) H 01/15/19 04:20 Calcium 8.0 mg/dL (7.9-10.9) 01/15/19 04:20 Calcium Adj for Albumin 7.9 mg/dL (8.4-10.2) L 01/15/19 04:20 Total Bilirubin 0.7 mg/dL (0.0-1.1) 01/15/19 04:20 AST 33 U/L (0-48) 01/15/19 04:20 ALT 42 U/L (19-67) 01/15/19 04:20 Alkaline Phosphatase 82 U/L (50-170) 01/15/19 04:20 Troponin I 0.022 ng/mL (0.00-0.10) 01/15/19 04:20 B-Natriuretic Peptide 8981 pg/mL (5-175) H 01/15/19 04:20 Total Protein 7.0 gm/dL (6.2-8.2) 01/15/19 04:20 Albumin 3.7 gm/dl (3.4-5.0) 01/15/19 04:20 Assessment/Plan - Narrative Narrative: Admit for continuous cardiac monitoring Diurese with IV furosemide Ambulate to determine need for home oxygen which he did not need oxygen. In walking his O2 sats were 97% and at rest at times was 100%. He is diuresed off quite a lot of fluid and his respiratory distress is resolved. - Assessment/Plan (1) Acute CHF Problem: Acute Qualifiers: Heart failure type: combined systolic and diastolic Qualified Code(s): I50.41 - Acute combined systolic (congestive) and diastolic (congestive) heart failure (2) Dyspnea Problem: Acute Qualifiers: Dyspnea type: acute respiratory distress Qualified Code(s): R06.03 - Acute respiratory distress (3) Pulmonary edema Problem: Acute Qualifiers: Chronicity: acute Qualified Code(s): J81.0 - Acute pulmonary edema (4) Hypertension Problem: Chronic Qualifiers: Hypertension type: essential hypertension Qualified Code(s): I10 - Essential (primary) hypertension (1) Acute CHF Problem: Acute Qualifiers: Heart failure type: combined systolic and diastolic Qualified Code(s): I50.41 - Acute combined systolic (congestive) and diastolic (congestive) heart failure (2) Dyspnea Problem: Acute (3) Pulmonary edema Problem: Acute (4) Hypertension Problem: Chronic Qualifiers: Hypertension type: essential hypertension Qualified Code(s): I10 - Essential (primary) hypertension Date of Discharge:: 01/15/19 Description of Stay: Ricky Gonzales, 63, presented with shortness of breath. it was rather acute in onset and was at rest. He could not walk from his bedroom to the bathroom without being very dyspneic. He came to the hospital and was dyspneic on arrival. He was placed on oxygen which helped and then was diuresed with IV furosemide 60 mg in the emergency room and I followed that with another 40 mg this morning and again at noon. He has diuresed very well and is breathing much better. He does not have any dyspnea now. He was walked in the halls and his O2 sat dropped only to 97%. He is feeling much improved and feels like he can go home. He also developed hypertension while here he was started on amlodipine which has lowered his blood pressure nicely. He is also on enalapril. Procedures Performed: none Results and Findings: Lab Pending Results 01/15/19 04:10: pCO2 31.7 L, pO2 59.5 L, HCO3 19.5 L, Total CO2 20.4, Base Excess -4.1 L, ABG pH 7.41, ABG O2 Sat (Measured) 91.3 L 01/15/19 04:20: WBC 8.8, RBC 4.84, Hgb 14.6, Hct 44.6, MCV 92.1, MCH 30.2, MCHC 32.7, RDW 13.8, Plt Count 220, MPV 9.5, Immature Gran % (Auto) 0.30, Immature Gran # (Auto) 0.03, Neutrophils % 86.5 H, Lymphocytes % 8.2 L, Monocytes % 4.6, Eosinophils % 0.1, Basophils % 0.3, Nucleated RBC % 0.0, Neutrophils # 7.6 H, Lymphocytes # 0.72 L, Monocytes # 0.4, Eosinophils # 0.0, Absolute Basophils 0.0 01/15/19 04:20: PT 10.7, INR (Anticoag Therapy) 1.08, PTT ([place]) 27.1 01/15/19 04:20: Sodium 131 L, Plasma Sodium 132, Potassium 4.6, Chloride 103, Carbon Dioxide 24.8, Anion Gap 7.8, BUN 25 H, Creatinine 1.44 H, Est GFR (Non-Af Amer) 52 L, BUN/Creatinine Ratio 17.4, Random Glucose 168 H, Calcium 8.0, Calcium Adj for Albumin 7.9 L, Total Bilirubin 0.7, AST 33, ALT 42, Alkaline Phosphatase 82, Troponin I 0.022, B-Natriuretic Peptide 8981 H, Total Protein 7.0, Albumin 3.7 Discharge Location: Home Disposition: Home self-care Condition: Stable Discharge Activity: Activity as tolerated Discharge Diet: Low salt Referrals: Tyrell Caban MD [Primary Care Provider] - Additional Patient Instructions (free text): Take Lasix at noon instead of morning See PCP within the next 2 weeks Keep appointment with cardiology at [facility] next week as scheduled Return as needed for shortness of breath. Prescriptions (Any new or edited meds): Furosemide [Lasix] 40 mg PO DAILY #30 tablet amLODIPine BESYLATE [Norvasc] 10 mg PO DAILY #30 tab Transmission Status: Received by [employer] #[id number] Complete Home Medications List: Complete Home Medication List: albuterol sulfate 2.5 mg IH Q4H PRN #100 ml 11/30/18 albuterol sulfate 90 mcg/actuation aerosol inhaler 1 - 2 puff INHALATION Q4H PRN #1 inhaler 11/30/18 enalapril maleate 10 mg tablet 10 mg PO DAILY #30 tab 11/30/18 Aspirin [Aspirin Enteric Coated] 81 mg PO DAILY 01/15/19 Furosemide [Lasix] 40 mg PO DAILY #30 tablet 01/15/19 amLODIPine BESYLATE [Norvasc] 10 mg PO DAILY #30 tab 01/15/19
[2019-01-15 16:58] VITALS: BP 170/98
[2019-01-16] MEDS ORDERED: ASPIRIN 81 MG TABLET.DR PO SCH (09:00)
[2019-01-16] MEDS ORDERED: FUROSEMIDE 40 MG TABLET PO SCH (12:00)
== END 2019-01-15 17:05 | disposition home or self-care (01) ==
LOC: ER 03:56 → MS 03:56
PROVIDERS: ADMIT Family Medicine; ATTEND Family Medicine
DX: I11.0 Hypertensive heart disease with heart failure; I50.43 Acute on chronic combined systolic (congestive) and diastolic (congestive) heart failure; J44.9 Chronic obstructive pulmonary disease, unspecified; R06.03 Acute respiratory distress; R09.02 Hypoxemia
CPT/HCPCS: 36415; 36600; 71010; 71045; 80053; 82803; 83519; 83880; 84484; 85025; 85610; 85730; 93005; 94640; 94664; 96374; 96376; 99285; G0378